=== PATIENT | female | born 1965 | race African-American/Black ===

== ENCOUNTER 2018-07-25 23:58 | Inpatient (IN) | payer MEDICARE, OTHER ==
[~2018-07-25] VITALS: Ht 154.9 cm; Wt 62.6 kg
[2018-07-26 00:07] VITALS: BP_SYST 132
[2018-07-26] MEDS ORDERED: KETOROLAC TROMETHAMINE 15 MG VIAL IVP PRN (00:30)
[2018-07-26] MEDS ORDERED: OMEP40CA33 PO (01:16)
[2018-07-26] MEDS ORDERED: BUSP10TA3 PO (01:23)
[2018-07-26] MEDS ORDERED: QUET300T2 PO (01:23)
[2018-07-26] MEDS ORDERED: BUDE6.9H INH (01:23)
[2018-07-26] MEDS ORDERED: BACL10TA PO (01:23)
[2018-07-26] MEDS ORDERED: DIPH50CA38 PO (01:23)
[2018-07-26] MEDS ORDERED: ALBMDI INH (01:23)
[2018-07-26] MEDS ORDERED: HYDR-2489 PO (01:23)
[2018-07-26 01:47] VITALS: BP_SYST 132
[2018-07-26] MEDS ORDERED: HYDROcodone/ACETAMIN 10-325 MG TAB PO PRN (02:00)
[2018-07-26] MEDS: MORPHINE 2 MG/ML INJ. SYRINGE IVP PRN ×3 (02:03→15:26)
[2018-07-26] MEDS: DIPHENHYDRAMINE HCL 25 MG CAPSULE PO PRN ×2 (02:03→15:25)
[2018-07-26] MEDS: NACL 0.9% 1,000 ML IV SCH ×2 (02:13→08:24)
[2018-07-26] MEDS: ONDANSETRON HCL 4 MG/2 ML VIAL IM PRN ×2 (02:13→08:21)
[2018-07-26] MEDS ORDERED: FLUTICASONE/VILANTEROL 1 EACH BLST.W.DEV INH SCH (07:00)
[2018-07-26 07:03] LABS: ALBUMIN 3.6 g/dL (3.4-4.8); CALCIUM 9.4 mg/dL (8.4-11.0); CREATININE 0.87 mg/dL (0.55-1.30); POTASSIUM 3.8 mmol/L (3.5-5.1); TOTAL BILIRUBIN 0.4 mg/dL (0.0-1.0)
[2018-07-26 07:05] LABS: BASOPHILS # (AUTO) 0.1 K/uL (0.0-0.2); EOSINOPHILS # (AUTO) 0.2 K/uL (0.0-0.4); EOSINOPHILS % (AUTO) 2.3 % (0.0-4.0); HEMATOCRIT 34.8 % (36-48); HEMOGLOBIN 11.3 g/dL (12.0-16.0); LYMPHOCYTES # (AUTO) 3.4 K/uL (1.0-5.5); LYMPHOCYTES % (AUTO) 34.8 % (20.5-51.5); MEAN CORPUSCULAR HEMOGLOBIN 27 pg (27-31); MEAN CORPUSCULAR HGB CONC 33 % (32-36); MEAN CORPUSCULAR VOLUME 84 fL (79.0-98.0); MONOCYTES # (AUTO) 0.6 K/uL (0.0-1.0); MONOCYTES % (AUTO) 6.3 % (1.7-9.3); NEUTROPHILS # (AUTO) 5.5 K/uL (1.8-7.7); NEUTROPHILS % (AUTO) 55.6 % (40.0-70.0); PLATELET COUNT (AUTO) 405 K/uL (130-430); RED BLOOD CELL COUNT(AUTO) 4.15 MIL/uL (4.2-6.2); RED CELL DISTRIBUTION WIDTH 15.4 % (9.0-15.0); WHITE BLOOD COUNT (AUTO) 9.8 K/uL (4.8-10.8)
[2018-07-26 08:09] VITALS: BP_SYST 110
[2018-07-26] MEDS: BACLOFEN 10 MG TABLET PO SCH ×3 (08:21→21:00)
[2018-07-26] MEDS: PANTOPRAZOLE SODIUM 40 MG/VIAL (PROTONIX) IVP SCH ×2 (08:22→08:32)
[2018-07-26] MEDS ORDERED: busPIRone HCL 5 MG TABLET PO SCH (09:00)
[2018-07-26] MEDS ORDERED: OMEPRAZOLE 20 MG CAPSULE.DR (PriLOSEC) PO SCH (09:00)
[2018-07-26] MEDS ORDERED: NON-FORMULARY MEDICATION (Hydrocodone/Acetaminophen (Norco 10-325 Tablet) 1 EACH) PO SCH (09:00)
[2018-07-26] MEDS ORDERED: DIPHENHYDRAMINE HCL 50 MG CAPSULE PO SCH (09:00)
[2018-07-26] MEDS: IPRATROPIUM/ALBUTEROL SULFATE 3 ML AMPUL.NEB INH PRN ×2 (09:20→18:29)
[2018-07-26 11:07] LABS: BILIRUBIN,URINE NEGATIVE (NEGATIVE); BLOOD, URINE NEGATIVE (NEGATIVE); CLARITY/URINE CLEAR (CLEAR); COLOR,URINE YELLOW (YELLOW); GLUCOSE,URINE NEGATIVE (NEGATIVE); KETONES,URINE NEGATIVE (NEGATIVE); LEUKOCYTE ESTERASE ,URINE NEGATIVE (NEGATIVE); NITRITE, URINE NEGATIVE (NEGATIVE); PH,URINE 6.5 (5.0-8.0); PROTEIN URINE NEGATIVE (NEGATIVE); UROBILINOGEN,URINE 0.2 (0.2-1.0)
[2018-07-26 12:20] VITALS: BP_SYST 119
[2018-07-26 15:02] VITALS: BP_SYST 125
[2018-07-26] MEDS: ONDANSETRON HCL 4 MG/2 ML VIAL IVP PRN (15:26)
[2018-07-26] MEDS ORDERED: busPIRone HCL 5 MG TABLET PO ONE (15:30)
[2018-07-26 20:05] VITALS: BP_SYST 126
[2018-07-26] MEDS: ACETAMINOPHEN 325 MG TABLET PO PRN (20:10)
[2018-07-26] MEDS: busPIRone HCL 5 MG TABLET PO SCH (21:00)
[2018-07-26] MEDS ORDERED: QUEtiapine FUMARATE 100 MG TABLET PO SCH (21:00)
[2018-07-27] MEDS: NACL 0.9% 1,000 ML IV SCH ×2 (00:17→06:30)
[2018-07-27 00:30] VITALS: BP_SYST 89
[2018-07-27] MEDS: MORPHINE 2 MG/ML INJ. SYRINGE IVP PRN (05:32)
[2018-07-27] MEDS: ONDANSETRON HCL 4 MG/2 ML VIAL IVP PRN (05:33)
[2018-07-27] MEDS: ACETAMINOPHEN 325 MG TABLET PO PRN (05:35)
[2018-07-27 08:00] VITALS: BP_SYST 105
[2018-07-27 08:08] LABS: BASOPHILS % (AUTO) 0.5 % (0.0-2.0); EOSINOPHILS # (AUTO) 0.1 K/uL (0.0-0.4); HEMATOCRIT 33.2 % (36-48); HEMOGLOBIN 10.8 g/dL (12.0-16.0); LYMPHOCYTES # (AUTO) 1.9 K/uL (1.0-5.5); LYMPHOCYTES % (AUTO) 29.9 % (20.5-51.5); MEAN CORPUSCULAR HEMOGLOBIN 28 pg (27-31); MEAN CORPUSCULAR HGB CONC 33 % (32-36); MEAN CORPUSCULAR VOLUME 84 fL (79.0-98.0); MONOCYTES # (AUTO) 0.4 K/uL (0.0-1.0); MONOCYTES % (AUTO) 6.4 % (1.7-9.3); NEUTROPHILS % (AUTO) 61.2 % (40.0-70.0); PLATELET COUNT (AUTO) 337 K/uL (130-430); RED BLOOD CELL COUNT(AUTO) 3.95 MIL/uL (4.2-6.2); RED CELL DISTRIBUTION WIDTH 15.4 % (9.0-15.0); WHITE BLOOD COUNT (AUTO) 6.4 K/uL (4.8-10.8)
[2018-07-27 08:30] LABS: ALBUMIN 3.2 g/dL (3.4-4.8); CALCIUM 9.2 mg/dL (8.4-11.0); CREATININE 0.82 mg/dL (0.55-1.30); POTASSIUM 4.2 mmol/L (3.5-5.1); TOTAL BILIRUBIN 0.6 mg/dL (0.0-1.0)
[2018-07-27] MEDS: PANTOPRAZOLE SODIUM 40 MG/VIAL (PROTONIX) IVP SCH (09:00)
[2018-07-27] MEDS: busPIRone HCL 5 MG TABLET PO SCH (09:05)
[2018-07-27] MEDS: IPRATROPIUM/ALBUTEROL SULFATE 3 ML AMPUL.NEB INH PRN (09:11)
[2018-07-27 12:00] VITALS: BP_SYST 100; BP_SYST 145
[2018-07-27 13:53] VITALS: BP_SYST 114
== END 2018-07-27 14:38 | disposition home or self-care (01) | DRG 446 ==
LOC: SMU 23:58 → STU 07-26 00:41 → SMU 07-26 01:35
PROVIDERS: ADMIT Internal Medicine; ATTEND Internal Medicine
DX: K83.1 Obstruction of bile duct (principal); J45.909 Unspecified asthma, uncomplicated; F32.9 Major depressive disorder, single episode, unspecified; F41.9 Anxiety disorder, unspecified; G89.29 Other chronic pain; M54.9 Dorsalgia, unspecified; Z90.49 Acquired absence of other specified parts of digestive tract
CPT/HCPCS: 36415; 74018; 74181; 80053; 81003; 83690-TC; 85025; 94640; C9113; J2270; J2405; J7030; J7620; Q0163